=== PATIENT | female | born 1995 | race African-American/Black ===

== ENCOUNTER → 2023-07-21 10:43 | Outpatient (BNVA) | payer OTHER, SELFPAY | PROVIDERS: PCP Internal Medicine; Visit Provider Surgery ==

== ENCOUNTER 2023-09-02 07:48 | Outpatient (AMB) | payer OTHER, SELFPAY ==
--- OUTSIDE RECORDS SUMMARY | 2023-09-02 07:50 | XMS_ITS | Continuity of Care Document ---
Author Organization [facility] Address [address] [place] [address]- Care Team Providers Care Dolphin Trainer Name Role Phone Franchesca MAIN, Jeremy Fong Primary Care Physician [facility] Date[facility]s): 11/21/20 - 12/21/20 [facility] [address] [address]- Attending Physician: Za Brown Admitting Physician: Za Brown Referring Physician: AdmtrZa Allergies, Adverse Reactions, Alerts Substance Reaction Severity Status NKA Active Immunizations Given and Recorded Vaccine Date Status Refusal Reason Human Papillomavirus Vaccine 1 10/03/17 Given Human Papillomavirus Vaccine 2 10/20/07 Given Human Papillomavirus Vaccine 06/12/07 Given Human Papillomavirus Vaccine 04/03/07 Given tetanus/diphtheria/pertussis, acel(Tdap) 04/22/14 Given tetanus/diphtheria/pertussis, acel(Tdap) 11/11/10 Given influenza virus vaccine, inactivated 02/04/14 Give n influenza virus vaccine, inactivated 05/18/12 Give n Meningococcal Conjugate Vaccine 12/24/11 Given Meningococcal Conjugate Vaccine 04/03/07 Given Meningococcal Polysaccharide Vaccine 11/11/10 Give n Hepatitis A Pediatric Vaccine 11/11/10 Given Hepatitis A Pediatric Vaccine 09/08/09 Given Influenza Virus Vaccine (oldterm) 04/03/07 Given Tet/Diphth/Acel, Pertussis (oldterm) 10/21/05 Give n Measles/Mumps/Rubella Virus Vaccine 11/24/04 Given Measles/Mumps/Rubella Virus Vaccine 93 Given Poliovirus Vaccine, Inactivated 09/04/97 Given Poliovirus Vaccine, Inactivated 02/15/95 Given Poliovirus Vaccine, Inactivated 03/31/94 Given Poliovirus Vaccine, Inactivated 01/27/94 Given Poliovirus Vaccine, Inactivated 93 Given Diphth/Pertussis,Acel/Tetanus (oldterm) 09/04/97 G iven Diphth/Pertussis,Acel/Tetanus (oldterm) 02/15/95 G iven Diphth/Pertussis,Acel/Tetanus (oldterm) 03/31/94 G iven Diphth/Pertussis,Acel/Tetanus (oldterm) 01/27/94 G iven Diphth/Pertussis,Acel/Tetanus (oldterm) 93 G iven Haemophilus B Conj Vaccine (oldterm) 11/24/94 Give n Haemophilus B Conj Vaccine (oldterm) 03/31/94 Give n Haemophilus B Conj Vaccine (oldterm) 01/27/94 Give n Haemophilus B Conj Vaccine (oldterm) 93 Give n Hepatitis B Vaccine (old term) 03/31/94 Given Hepatitis B Vaccine (old term) 93 Given Hepatitis B Vaccine (old term) 93 Given 1Admin Note: gardasil 9 2Admin Note: GARDASIL #3 Problem List Condition Effective Dates Status Health Status Inform ant Abdominal mass(Confirmed) Active 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
--- OUTSIDE RECORDS SUMMARY | 2023-09-02 07:50 | XMS_ITS | Continuity of Care Document ---
Author Organization [facility] Address [address] [place] [address]- Care Team Providers Care Surgical Brace Maker Name Role Phone Franchesca MAIN, Jeremy Fong Primary Care Physician [place] [facility] [place] 05/[place]/21 [facility] [address] [address]- Attending Physician: Not on Staff, Attending MD Referring Physician: Pina Morrow CNM Allergies, Adverse Reactions, Alerts Substance Reaction Severity [...] Note: gardasil 9 2Admin Note: GARDASIL #3 Medications Diflucan 150 mg oral tablet 1 tablet = 150 mg, By Mouth, Once, # 1 tablet, 0 Refills, Soft Stop, 04/07/21 8:57:00 EST, [facility]/pharmacy #[id number], Partial fill upon patient request if the prescription is for a schedule II opioid drug.,180, cm, 04/02/21 19:27:00 EST, Height, 126.3, kg,... 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
--- OUTSIDE RECORDS SUMMARY | 2023-09-02 07:50 | XMS_ITS | Continuity of Care Document ---
Author Organization [facility] Address [address] [place] [address]- Care Team Providers Care Load Manager Name Role Phone Franchesca MAIN, Jeremy Fong Primary Care Physician [facility] Date(s): 04/03/21 - 05/03/21 [facility] [address] [address]- Allergies, Adverse Reactions, Alerts Substance Reaction Severity [...] 0 Refills, Soft Stop, 04/07/21 8:57:00 EST, [facility]/pharmacy #[id number], Partial fill upon patient request if [...]
--- OUTSIDE RECORDS SUMMARY | 2023-09-02 07:50 | XMS_ITS | Continuity of Care Document ---
Author Organization [facility] Address [address] [place] [address]- Care Team Providers Care Flowers Salesperson Name Role Phone Franchesca MAIN, Jeremy Fong Primary Care Physician Encounter [facility] Date(s): 06/29/22 - 06/29/[address] [address]- Discharge Disposition: A-D/C Home Attending Physician: Adonay Stanford MD Admitting Physician: Adonay Stanford MD Referring Physician: Not on Staff, Referring MD Allergies, Adverse Reactions, Alerts No Known Allergies Immunizations Given and Recorded Vaccine Date Status [...] gardasil 9 2Admin Note: GARDASIL #3 Medications Metformin By Mouth, 0 Refills, Maintenance, 06/29/22 20:33:00 EST, Partial fill upon patient request if the prescription is for a schedule II opioid drug. Start Date: 06/29/22 Status: Ordered Problem List Condition Confirmation Course Effective Dates Status Health St atus Informant Abdominal mass Confirmed Active Granulosa cell tumor of right ovary Confirmed Active HSV infection Confirmed Active Healthy adult on routine physical examination Confirmed Active Severe obesity Confirmed Active Vaginal discharge Confirmed Active Vital Signs Most recent to oldest [Reference Range]: 1 2 3 Height 180 cm (06/29/22 9:14 PM) 180 cm (06/29/22 8:32 PM) 180 cm (06/29/22 8:31 PM) Weight 131 kg (06/29/22 8:32 PM) 131 kg (06/29/22 8:31 PM) 131 kg (06/29/22 7:54 PM) Oxygen Saturation [94-100 %] 97 % (06/29/22 9:14 PM) 99 % (06/29/22 8:31 PM) 99 % (06/29/22 7:54 PM) Pulse Rate [55-90 bpm] 71 bpm (06/29/22 9:14 PM) 76 bpm (06/29/22 8:31 PM) 87 bpm (06/29/22 7:54 PM) Body Mass Index [18.5-24.99 kg/m2] 40.43 kg/m2 *>HHI* (06/29/22 8:31 PM) 40.43 kg/m2 *>HHI* (06/29/22 7:54 PM) Blood Pressure [90-138/55-84 mm Hg] 131/72mm Hg (06/29/22 9:14 PM) 131/79mm Hg (06/29/22 8:31 PM) Respiratory Rate [16-30 br/min] 18 br/min (06/29/22 9:14 PM) 18 br/min (06/29/22 8:31 PM) 16 br/min (06/29/22 7:54 PM) Temperature [96.8-100.4 DegF] 98.0 DegF (06/29/22 9:14 PM) 97.0 DegF (06/29/22 8:31 PM) Mode of Delivery (Oxygen) Room air (06/29/22 9:14 PM) Room air (06/29/22 8:31 PM) Room air (06/29/22 7:54 PM) Blood pressure sites Arm, right (06/29/22 9:14 PM) Arm, left (06/29/22 8:31 PM) Temperature Route Oral (06/29/22 9:14 PM) Temporal (06/29/22 8:31 PM) Dry Weight 131 kg (06/29/22 8:32 PM) 131 kg (06/29/22 8:31 PM) 131 kg (06/29/22 7:54 PM) Weight Obtained Via Patient/family state d (06/29/22 7:54 PM) Dry Weight Obtained Via Patient/family s tated (06/29/22 7:54 PM) Social History Social History Type Response Smoking Status Never smoker entered on: 05/11/16 Sex Note * Abdoulaye MAIN, Adonay Cummings: PERFORM Event Display: Patient Education Leaflets Authored Date: [id number] Zones GI Bleed ?? 400 GASTROINTESTINAL BLEED ZONES EVERY DAY Taking Care of Yourself with a Gastrointestinal Bleed Gastrointestinal Bleeding occurs when there is an irritation or break in the tissue of part of the gastrointestinal tract. EVERY DAY: ??? Take your medicine as prescribed. ??? Do not take any medicines with aspirin, Naproxen, Aleve, Motrin, Naprosyn, or ibuprofen. ??? Be sure to make a visit with your doctor/nurse within a few days. ??? Do your best to limit alcohol, spicy foods, or smoking. ??? Do not strain with having a bowel m ovement. ??? Slowly increase your activities as able . ??? Try to limit stress and avoid lifting heavy objects. Which Zone are you today? GREEN, YELLOW, or RED? GREEN ZONE ALL CLEAR - This zone is your goal Your symptoms are under control when: ??? You have no bloody stools or vomit. ??? You have no pain.??? You have no nausea or vomiting. YELLOW ZONE ?? STOP && CALL CAUTION - This zone is a warning.?? If you have any of the following: Call your Doctor : ??? Vomiting bright red, dark or black blood (could also look like coffee grounds. ??? Feel like you may have a BM but you only pass blood or blood clots. ??? You have sticky, tarry, or black stools that are not caused by medicines. ??? You have nausea, vomiting, or abdominal (belly) pain or abdominal swelling. ??? You start having heartburn or other signs of stomach problems. ??? You have questions or concerns about your illness or medications. ??? You have trouble breathing or your skin is itchy, swollen or has a rash (You may have an allergy to one of your meds). RED ZONE EMERGENCY: Speak with a Doctor/Nurse promptly if you have any of the following: (Do not drive yourself) ??? Dizziness or fainting mainly after changing positions. ??? Feel confused, have trouble breathing all of the sudden, or have chest pain. ??? Pain appears and worsens or spreads to neck, back, shoulder, or arm. ??? Are too weak to stand up. ? Patient Care team information Care Team Personnel Name: Jeremy Sorensen MD Position: Reference Physician Member Role: PCP Address: Address: [address] [place] [address]- Name: Adonay Stanford MD Position: [facility] Medicine MD Member Role: Admitting Physician Address: Address: [address] [place] [address]- Name: Jessica Ngo RN Position: [facility] RN W/OE and Tasks Member Role: Patient Care Provider Name: Elisabet Fisher Position: [facility] TA [facility] Member Role: Candy Puller Care Team Related Persons Name: MARIEL MURRAY Address: [place] [address] Name: ISSAC MURRAY Address: home [address] [place] [address]
--- OUTSIDE RECORDS SUMMARY | 2023-09-02 07:50 | XMS_ITS | Continuity of Care Document ---
Author Organization [facility] ter Address [address] [place] [address]- Care Team Providers Care Utility Worker Forge Name Role Phone Franchesca MAIN, Jeremy Fong Primary Care Physician [facility] Date[facility]s): 03/06/20 - 04/10/[address] [address] Attending Physician: Mariann Waite NP Admitting Physician: Mariann Waite NP Referring Physician: Mariann Waite NP Allergies, Adverse Reactions, Alerts Substance Reaction Severity [...] gardasil 9 2Admin Note: GARDASIL #3 Medications Valtrex 500 mg oral tablet 500 mg, 1, tablet, By Mouth, Daily, Refills 0, Maintenance, 11/21/18 9:55:43 EDT Start Date: 11/21/18 Status: Ordered Problem List Condition Effective Dates Status Health Status Inform ant Abdominal mass(Confirmed) Active 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
--- OUTSIDE RECORDS SUMMARY | 2023-09-02 07:50 | XMS_ITS | Continuity of Care Document ---
Author Organization [facility] Address [address] [place] [address]- Care Team Providers Care Round Up Ring Hand Name Role Phone Franchesca MAIN, Jeremy Fong Primary Care Physician [facility] Date(s): 06/26/20 - 07/26/20 [facility] [address] [address]- Allergies, Adverse Reactions, Alerts Substance Reaction Severity [...] gardasil 9 2Admin Note: GARDASIL #3 Medications Flagyl 500 mg oral tablet See Instructions, 1 tablet By Mouth Every 12 hours x 7 days. do not drink alcohol, # 14 tablet, 0 Refills, Maintenance, 06/26/20 12:58:00 EST, [facility][id number], Partial fill upon patient request ifthe prescription is for a schedule II opioid drug.... Start Date: 06/26/20 Status: Ordered fluconazole 150 mg oral tablet 1 tablet = 150 mg, By Mouth, Once, repeat dose if still having symptoms in 72 hours, # 2 tablet, 0 Refills, Soft Stop, 05/07/20 10:43:00 EST, Tablet, [id number], Partial fill upon patient request if the prescription is for a schedule II opioid... Start Date: 05/07/20 Status: Ordered Valtrex 500 mg oral tablet 500 mg, [...]
--- OUTSIDE RECORDS SUMMARY | 2023-09-02 07:51 | XMS_ITS | Continuity of Care Document ---
Author Organization [facility] Address [address] [place] [address]- Care Team Providers Care Food Trades Assistants Name Role Phone Franchesca MAIN, Jeremy Fong Primary Care Physician [place] [facility] [place]19 - 07/08/19 [facility] [address] [address] [facility] Attending Physician: Za Brown Admitting Physician: Za [...]
--- OUTSIDE RECORDS SUMMARY | 2023-09-02 07:51 | XMS_ITS | Continuity of Care Document ---
Author Organization [facility] Address [address] [place] [address]- Care Team Providers Care Insurance Claims Specialist Name Role Phone Franchesca MAIN, Jeremy Fong Primary Care Physician [phone] [facility]counter [facility] Date(s): 06/20/20 - 07/20/20 [facility] [address] [address]- Allergies, Adverse Reactions, Alerts Substance Reaction Severity [...] tablet, 0 Refills, Maintenance, 06/26/20 12:58:00 EST, [facility]/pharmacy #[id number], Partial fill upon patient request ifthe prescription is for a schedule II opioid drug.... Start Date: 06/26/20 Status: Ordered fluconazole 150 mg oral tablet 1 tablet = 150 mg, By Mouth, Once, repeat dose if still having symptoms in 72 hours, # 2 tablet, 0 Refills, Soft Stop, 05/07/20 10:43:00 EST, Tablet, [facility]/pharmacy #[id number], Partial fill upon patient request if [...]
--- OUTSIDE RECORDS SUMMARY | 2023-09-02 07:51 | XMS_ITS | Continuity of Care Document ---
Author Organization [facility] Address [address] [place] [address]- Care Team Providers Care Project Administrator Name Role Phone Franchesca MAIN, Jeremy Fong Primary Care Physician [facility] Date(s): 04/22/23 - 05/22/23 [facility] [address] [address] Allergies, Adverse Reactions, Alerts No Known Allergies [...] gardasil 9 2Admin Note: GARDASIL #3 Medications semaglutide Daily, 0 Refills, Maintenance, 09/28/22 12:02:00 EDT, Partial fill upon patient request if the prescription is for a schedule II opioid drug. Start Date: 09/28/22 Status: Ordered Problem List Condition Confirmation Course Effective Dates Status Health St atus Informant Abdominal mass Confirmed Active Granulosa cell tumor of right ovary Confirmed Active HSV infection Confirmed Active Healthy adult on routine physical examination Confirmed Active Obese class II Confirmed Active Vaginal discharge Confirmed Active Social History Social History Type Response Smoking Status Never smoker entered on: 05/11/16 Sex Patient Care team information Care Team Personnel Name: Franchesca MAIN, Jeremy Fong Position: Reference Physician Member Role: PCP Address: Address: [address] [place] [address]- Care Team Related Persons Name: MARIEL MURRAY Address: [place] [address] Name: ISSAC MURRAY Address: home [address] [place] [address]
--- OUTSIDE RECORDS SUMMARY | 2023-09-02 07:51 | XMS_ITS | Continuity of Care Document ---
Author Organization [facility] Address [address] [place] [address]- Care Team Providers Care Titrator Name Role Phone Franchesca MAIN, Jeremy Fong Primary Care Physician [phone] [facility]counter [facility] Date(s): 04/15/23 - 05/15/23 [facility] [address] [address] Allergies, Adverse Reactions, Alerts No Known [...] Reference Physician Member Role: PCP Address: Address: [address] [place] [address]- Care Team Related Persons Name: MARIEL MURRAY Address: [place] [address] Name: ISSAC MURRAY Address: [address] [place] [address]
--- OUTSIDE RECORDS SUMMARY | 2023-09-02 07:51 | XMS_ITS | Continuity of Care Document ---
Author Organization [facility] ter Address [address] [place] [address]- Care Team Providers Care On Call Pharmacy Technician Name Role Phone Franchesca MAIN, Jeremy Fong Primary Care Physician Encounter [facility] [place] Date(s): 04/21/20 - 04/21/[address] [address]- Encounter Diagnosis Bacterial vaginosis(Discharge Diagnosis) - 04/21/20 Discharge Disposition: A-D/C Home Attending Physician: Clem Perdue MD Admitting Physician: Clem Perdue MD Referring Physician: Clem Perdue MD Allergies, Adverse Reactions, Alerts Substance Reaction Severity [...] #3 Medications Flagyl 500 mg oral tablet 1 tablet = 500 mg, By Mouth, Every 12 hours, for 7 days, Acute, # 14 tablet, 0 Refills, Acute 04/28/20 18:48:00 EST, 04/21/20 18:48:00 EST, [facility] #[id number], Partial fill upon patient request if the prescription is for a schedule II opioid... 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 adult on routine phy sical examination(Confirmed) Active Diagnosis Diagnosis Type Effective Dates Health Status Cl inical Service Informant Bacterial vaginosis Discharge Diagnosis 04/21/20 Vital Signs Most recent to oldest [Reference Range]: 1 Height 183.2 cm (04/21/20 5:28 PM) Weight 124.0 kg (04/21/20 5:18 PM) Oxygen Saturation [94-100 %] 100 % (04/21/20 5:28 PM) Pulse Rate [55-90 bpm] 91 bpm *H* (04/21/20 5:28 PM) Blood Pressure [90-138/55-84 mm Hg] 130/ 77mm Hg (04/21/20 5:28 PM) Respiratory Rate [16-30 br/min] 18 br/mi n (04/21/20 5:28 PM) Temperature [96.8-100.4 DegF] 98.4 DegF (04/21/20 5:28 PM) Mode of Delivery (Oxygen) Room air (04/21/20 5:28 PM) Blood pressure sites Arm, left (04/21/20 5:28 PM) Temperature Route Oral (04/21/20 5:28 PM) Dry Weight 124.0 kg (04/21/20 5:18 PM) Weight Obtained Via Standing scale (04/21/20 5:18 PM) Dry Weight Obtained Via Standing scale (04/21/20 5:18 PM) Social History Social History Type Response Smoking Status Never smoker entered on: 05/11/16 Sex
--- OUTSIDE RECORDS SUMMARY | 2023-09-02 07:51 | XMS_ITS | Continuity of Care Document ---
Author Organization [facility] Address [address] [place] [address]- Care Team Providers Care Electrical Tests Supervisor Name Role Phone Franchesca MAIN, Jeremy Fong Primary Care Physician [facility] Date[facility]s): 07/30/21 - 08/29/21 [facility] DIRECTOR OF ATHLETICS Oncology [address] [place] [address] Allergies, Adverse Reactions, Alerts No Known Allergies [...] 0 Refills, Soft Stop, 04/07/21 8:57:00 EST, [facility]/pharmacy #[id number], Partial fill upon patient request if [...]
--- OUTSIDE RECORDS SUMMARY | 2023-09-02 07:51 | XMS_ITS | Continuity of Care Document ---
Author Organization [facility] Address [address] [place] [address]- Care Team Providers Care Oilfield Plant And Field Operator Name Role Phone Franchesca MAIN, Jeremy Fong Primary Care Physician [facility] Date(s): 01/28/22 - 02/27/22 [facility] [address] [place], [place] [address] Attending Physician: Za Brown Admitting Physician: Za Brown Referring Physician: AdmtrZa Allergies, Adverse Reactions, Alerts No Known Allergies [...] 2Admin Note: GARDASIL #3 Problem List Condition Confirmation Course Effective Dates Status Health St atus Informant Abdominal mass Confirmed Active Granulosa cell tumor of right ovary Confirmed Active HSV infection Confirmed Active Healthy adult on routine physical examination Confirmed Active Obese class II Confirmed Active Vaginal discharge Confirmed Active Social History Social History Type Response Smoking Status Never smoker entered on: 05/11/16 Sex Patient Care team information Personnel Name: Franchesca MAIN , Jeremy Fong Address: Address: [address] [place] [address]
--- OUTSIDE RECORDS SUMMARY | 2023-09-02 07:51 | XMS_ITS | Continuity of Care Document ---
Author Organization [facility] Address [address] [place] [address]- Care Team Providers Care Family Practice Physician Name Role Phone Franchesca MAIN, Jeremy Fong Primary Care Physician [phone] Encounter [facility] Date(s): 07/18/23 - 08/17/23 [facility] [address] [address] Allergies, Adverse Reactions, Alerts No Known [...] ovary Confirmed Active HSV infection Confirmed Active Obese class II Confirmed Active Social History Social History Type Response Smoking Status Never smoker entered on: 05/11/16 Sex Patient Care team information Care Team Personnel Name: Franchesca MAIN, Jeremy Fong Position: Reference Physician Member Role: PCP Address: Address: [address] [place] [address]- Care Team Related Persons Name: MARIEL MURRAY Address: [place] [address] Name: ISSAC MURRAY Address: [address] [place] [address]
--- OUTSIDE RECORDS SUMMARY | 2023-09-02 07:51 | XMS_ITS | Continuity of Care Document ---
Author Organization [facility] Address [address] [place] [address]- Care Team Providers Care Activity Assistant Name Role Phone Franchesca MAIN, Jeremy Fong Primary Care Physician [facility] Date(s): 07/30/20 - 08/29/20 [facility] [address] [address]- Allergies, Adverse Reactions, Alerts Substance Reaction Severity [...] tablet, 0 Refills, Maintenance, 06/26/20 12:58:00 EST, [facility]/pharmacy #[id number], Partial fill upon patient request ifthe prescription is for a schedule II opioid drug.... Start Date: 06/26/20 Status: Ordered fluconazole 150 mg oral tablet 1 tablet = 150 mg, By Mouth, Once, repeat dose if still having symptoms in 72 hours, # 2 tablet, 0 Refills, Soft Stop, 05/07/20 10:43:00 EST, Tablet, [facility]/pharmacy #[id number], Partial fill upon patient request if the prescription is for a schedule II opioid... Start Date: 05/07/20 Status: Ordered ibuprofen 400 mg oral tablet 400 mg, 1, tablet, By Mouth, Every 6 hours, # 30 tablet, Refills 0, Tot. Refills 0, Maintenance, 07/30/20 16:03:00 EDT, Route to Pharmacy Electronically, [facility]/pharmacy #[id number], Partial fill upon patientrequest if the prescription is for a schedule II op... Start Date: 07/30/20 Status: Ordered lidocaine 4% topical film 1 patch, Topically, 3 times a day, # 15 each, 0 Refills, Maintenance, 07/30/20 16:03:00 EDT, [id number], Partial fill upon patient request if the prescription is for a schedule II opioid drug., 1 patch Topically 3 times a day, 183, cm, 2... Start Date: 07/30/20 Status: Ordered Tylenol 325 mg oral capsule 2 capsule = 650 mg, By Mouth, Every 6 hours, PRN Pain , Moderate, # 20 capsule, 0 Refills, Maintenance, 07/30/20 16:03:00 EDT, Capsule, [id number], Partial fill upon patient request if the prescription is for a schedule II opioid drug., 183, c... Start Date: 07/30/20 Status: Ordered Valtrex 500 mg oral tablet [...]
--- OUTSIDE RECORDS SUMMARY | 2023-09-02 07:51 | XMS_ITS | Continuity of Care Document ---
Author Organization [facility] DIAL PAINTER Oncolog y Address [address] [place] [address]- Care Team Providers Care Allergy And Immunology Specialist Name Role Phone Franchesca MAIN, Jeremy Fong Primary Care Physician [phone] Encounter [facility] Date(s): 05/07/20 - 06/06/20 [facility] DIAL PAINTER Oncology [address] [place] [id number] Allergies, Adverse Reactions, Alerts Substance Reaction Severity [...] gardasil 9 2Admin Note: GARDASIL #3 Medications fluconazole 150 mg oral tablet 1 tablet [...]
--- OUTSIDE RECORDS SUMMARY | 2023-09-02 07:51 | XMS_ITS | Continuity of Care Document ---
Author Organization [facility] Address [address] [place] [address]- Care Team Providers Care Wire Tester Name Role Phone Franchesca MAIN, Jeremy Fong Primary Care Physician Encounter [facility] Date(s): 05/04/19 - 05/14/19 [facility] [address] [place] [address]- [facility] Attending Physician: Za Brown Admitting Physician: Za Brown Referring Physician: Za Brown Allergies, Adverse Reactions, Alerts Substance Reaction Severity [...]
--- OUTSIDE RECORDS SUMMARY | 2023-09-02 07:51 | XMS_ITS | Continuity of Care Document ---
Author Organization [facility] Address [address] [place] [address]- Care Team Providers Care Cement Paver Name Role Phone Franchesca MAIN, Jeremy Fong Primary Care Physician Encounter [facility] Date(s): 07/13/23 - 08/12/[address] [address]- Attending Physician: Za Brown Admitting Physician: Za Brown Referring Physician: AdmZa timmons Allergies, Adverse Reactions, Alerts No Known Allergies [...] Reference Physician Member Role: PCP Address: Address: [address] [place] [address]- Care Team Related Persons Name: MARIEL MURRAY Address: [place] [address] Name: ISSAC MURRAY Address: home [address] [place] [address]
--- OUTSIDE RECORDS SUMMARY | 2023-09-02 07:51 | XMS_ITS | Continuity of Care Document ---
Author Organization [facility] Address [address] [place] [address]- Care Team Providers Care Court Operations Clerk Name Role Phone Franchesca MAIN, Jeremy Fong Primary Care Physician Encounter [facility] Date(s): 07/29/20 - 08/28/20 [facility] [address] [address]- Attending Physician: Za Brown Admitting Physician: Za [...] tablet, 0 Refills, Maintenance, 06/26/20 12:58:00 EST, [facility]/pharmacy #[id number], Partial fill upon patient request ifthe prescription is for a schedule II opioid drug.... Start Date: 06/26/20 Status: Ordered fluconazole 150 mg oral tablet 1 tablet = 150 mg, By Mouth, Once, repeat dose if still having symptoms in 72 hours, # 2 tablet, 0 Refills, Soft Stop, 05/07/20 10:43:00 EST, Tablet, [facility]/pharmacy #[id number], Partial fill upon patient request if the prescription is for a schedule II opioid... Start Date: 05/07/20 Status: Ordered ibuprofen 400 mg oral tablet 400 mg, 1, tablet, By Mouth, Every 6 hours, # 30 tablet, Refills 0, Tot. Refills 0, Maintenance, 07/30/20 16:03:00 EDT, Route to Pharmacy Electronically, [facility]/pharmacy #[id number], Partial fill upon patientrequest if the [...] Topically 3 times a day, 183, cm, ... Start Date: 07/30/20 Status: Ordered Tylenol 325 [...]
--- OUTSIDE RECORDS SUMMARY | 2023-09-02 07:51 | XMS_ITS | Continuity of Care Document ---
Author Organization [facility] GREASE BUFFER Oncolog y Address [address] [place] [address]- Care Team Providers Care Fire Information Officer Name Role Phone Jeremy Sorensen MD Primary Care Physician [facility]counter [facility] Date(s): 07/08/21 - 08/16/21 [facility] Oncology [address] [place] [email or web address] Attending Physician: Dylan Murray MD Admitting Physician: Dylan Murray MD Referring Physician: Jeremy Sorensen MD Allergies, Adverse Reactions, Alerts No Known [...] 0 Refills, Soft Stop, 04/07/21 8:57:00 EST, [facility]/pharmacy #[id number], Partial fill upon patient request if [...]
--- OUTSIDE RECORDS SUMMARY | 2023-09-02 07:51 | XMS_ITS | Continuity of Care Document ---
Author Organization [facility] Address [address] [place] [address]- Care Team Providers Care Preparer Samples And Repairs Name Role Phone Franchesca MAIN, Jeremy Fong Primary Care Physician [phone] Encounter [facility] Date(s): 04/06/21 - 05/06/21 [facility] [address] [address]- Attending Physician: Za Brown Admitting Physician: Za [...] 0 Refills, Soft Stop, 04/07/21 8:57:00 EST, [facility]/pharmacy #[id number], Partial fill upon patient request [...]
--- OUTSIDE RECORDS SUMMARY | 2023-09-02 07:51 | XMS_ITS | Continuity of Care Document ---
Author Organization [facility] Address [address] [place] [address]- Care Team Providers Care Pharmacy Operations Coordinator Name Role Phone Franchesca MAIN, Jeremy Fong Primary Care Physician [facility]counter [facility] Date(s): 06/25/19 - 11/17/19 [facility] [address] [address]- [facility] Attending Physician: Not on Staff, Attending MD Allergies, Adverse Reactions, Alerts Substance Reaction [...]
--- OUTSIDE RECORDS SUMMARY | 2023-09-02 07:51 | XMS_ITS | Continuity of Care Document ---
Author Organization [facility] Address [address] [place] [address]- Care Team Providers Care Roof Promenade Tile Setter Name Role Phone Franchesca MAIN, Jeremy Fong Primary Care Physician Encounter [facility] Date(s): 11/27/19 - 12/27/19 [facility] [address] [address]- [facility] Attending Physician: Za Brown Admitting Physician: Za [...]
--- OUTSIDE RECORDS SUMMARY | 2023-09-02 07:52 | XMS_ITS | Continuity of Care Document ---
Author Organization [facility] Oncolog [facility] Address [address] [place] [address]- Care Team Providers Care Licensed Esthetician Name Role Phone Jeremy Sorensen MD Primary Care Physician [phone] Encounter [facility] Date(s): 02/07/21 - 06/07/21 [facility] [address] [place] [address]- Attending Physician: Stacie Brown MD Admitting Physician: Stacie Brown MD Referring Physician: Jeremy Sorensen MD Allergies, [...] 0 Refills, Soft Stop, 04/07/21 8:57:00 EST, [facility]/pharmacy #[id number], Partial fill upon patient request [...]
--- OUTSIDE RECORDS SUMMARY | 2023-09-02 07:52 | XMS_ITS | Continuity of Care Document ---
Author Organization [facility] ter Address [address] [place] [address]- Care Team Providers Care Investor Relations Associate Name Role Phone Franchesca MAIN, Jeremy Fong Primary Care Physician Encounter [facility] Date(s): 04/21/21 - 06/18/[address] [address] Attending Physician: Annette Bosch CNM Admitting Physician: Annette Bosch CNM Referring Physician: Annette Bosch CNM Allergies, Adverse Reactions, Alerts No Known Allergies [...] 0 Refills, Soft Stop, 04/07/21 8:57:00 EST, [facility]/pharmacy #[id number], Partial fill upon [...]
--- OUTSIDE RECORDS SUMMARY | 2023-09-02 07:52 | XMS_ITS | Continuity of Care Document ---
Author Organization [facility] FURNACE COOLER Oncolog y Address [address] [place] [address]- Care Team Providers Care Inspector Final Assembly Electrical Name Role Phone Franchesca MAIN, Jeremy Fong Primary Care Physician [facility]counter [facility] Date(s): 06/25/20 - 07/25/20 [facility] FURNACE COOLER Oncology [address] [place] [address] Allergies, Adverse Reactions, Alerts Substance Reaction Severity [...]
--- OUTSIDE RECORDS SUMMARY | 2023-09-02 07:52 | XMS_ITS | Continuity of Care Document ---
Author Organization [facility] DIRECTOR OF ACADEMIC Oncolog y Address [address] [place] [address]- Care Team Providers Care Stoper Name Role Phone Franchesca MAIN, Jeremy Fong Primary Care Physician Encounter [facility] Date(s): 05/21/21 - 06/20/21 [facility] DIRECTOR OF ACADEMIC Oncology [address] [place] [address] Attending Physician: Za Brown [...] 0 Refills, Soft Stop, 04/07/21 8:57:00 EST, [facility]/pharmacy #[id number], Partial fill upon [...]
--- OUTSIDE RECORDS SUMMARY | 2023-09-02 07:52 | XMS_ITS | Continuity of Care Document ---
Author Organization [facility] Address [address] [place] [address]- Care Team Providers Care Orthodontist Vice President Name Role Phone Franchesca MAIN, Jeremy Fong Primary Care Physician [phone] Encounter [facility] Date(s): 11/28/20 - 11/28/[address] [address]- Discharge Disposition: A-D/C Home Attending Physician: Catracho Zepeda MD Admitting Physician: Catracho Zepeda MD Referring Physician: Not on Staff, Referring MD Allergies, Adverse Reactions, Alerts Substance Reaction [...] gardasil 9 2Admin Note: GARDASIL #3 Medications No Known Medications Problem List Condition Effective Dates Status Health Status Inform ant Abdominal mass(Confirmed) Active 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 adult on routine phy sical examination(Confirmed) Active Vaginal discharge(Confirmed) Active Vital Signs Most recent to oldest [Reference Range]: 1 Height 180 cm (11/28/20 11:53 AM) Weight 126.3 kg (11/28/20 11:53 AM) Oxygen Saturation [94-100 %] 96 % (11/28/20 11:53 AM) Pulse Rate [55-90 bpm] 84 bpm (11/28/20 11:53 AM) Blood Pressure [90-138/55-84 mm Hg] 141/ 84mm Hg *H* (11/28/20 11:53 AM) Respiratory Rate [16-30 br/min] 16 br/mi n (11/28/20 11:53 AM) Temperature [96.8-100.4 DegF] 98.3 DegF (11/28/20 11:53 AM) Mode of Delivery (Oxygen) Room air (11/28/20 11:53 AM) Blood pressure sites Arm, left (11/28/20 11:53 AM) Temperature Route Oral (11/28/20 11:53 AM) Dry Weight 126.3 kg (11/28/20 11:53 AM) Weight Obtained Via Standing scale (11/28/20 11:53 AM) Dry Weight Obtained Via Standing scale (11/28/20 11:53 AM) Social History Social History Type Response Smoking Status Never smoker entered on: 05/11/16 Sex
--- OUTSIDE RECORDS SUMMARY | 2023-09-02 07:52 | XMS_ITS | Continuity of Care Document ---
Author Organization [facility] Address [address] [place] [address]- Care Team Providers Care Molding Press Operator Name Role Phone Jeremy Sorensen MD Primary Care Physician [facility]counter [facility] Date(s): 04/21/23 - 05/21/23 [facility] [address] [address]- Attending Physician: Za Brown Admitting Physician: Za [...] Reference Physician Member Role: PCP Address: Address: [address] [place] [address]- Care Team Related Persons Name: MARIEL MURRAY Address: [place] [address] Name: ISSAC MURRAY Address: home [address] [place] [address]
--- OUTSIDE RECORDS SUMMARY | 2023-09-02 07:52 | XMS_ITS | Continuity of Care Document ---
Author Organization [facility] ter Address [address] [place] [address]- Care Team Providers Care Grain Processor Name Role Phone Franchesca MAIN, Jeremy Fong Primary Care Physician Encounter [facility] Date(s): 07/30/20 - 07/30/[address] [address]- Discharge Disposition: A-D/C Home Attending Physician: Elizabeth Crump DO Admitting Physician: Elizabeth Crump DO Referring Physician: Not on Staff, Referring MD [...] gardasil 9 2Admin Note: GARDASIL #3 Medications clotrimazole 1% vaginal cream with applicator 1 application, Vaginally, Daily at bedtime, for 7 days, # 45 Gm, 0 Refills, Acute 08/06/20 14:53:00EDT, 07/30/20 14:53:00 EDT, Cream, [facility]/pharmacy #[id number], Partial fill upon patient request if the prescription is for a schedule II opioid drug., 1 appli... Start Date: 07/30/20 Stop Date: 08/06/20 Status: Ordered Flagyl 500 mg oral tablet 1 tablet = 500 mg, By Mouth, Every 12 hours, for 7 days, # 14 tablet, 0 Refills, Acute 08/06/20 14:53:00 EDT, 07/30/20 14:53:00 EDT, [facility]/pharmacy #[id number], Partial fill upon patient request if the prescription is for a schedule II opioid drug., 183, cm,... Start Date: 07/30/20 Stop Date: 08/06/20 Status: Ordered Flagyl 500 mg oral tablet See Instructions, 1 tablet By Mouth Every 12 hours x 7 days. do not drink alcohol, # 14 tablet, 0 Refills, Maintenance, 06/26/20 12:58:00 EST, [facility]/pharmacy #[id number], Partial fill upon patient request ifthe prescription is for a schedule II opioid drug.... Start Date: 06/26/20 Status: Ordered fluconazole 150 mg oral tablet 1 tablet = 150 mg, By Mouth, Once, repeat dose if still having symptoms in 72 hours, # 2 tablet, 0 Refills, Soft Stop, 05/07/20 10:43:00 EST, Tablet, [facility]/pharmacy #[id number], Partial fill upon patient request if the prescription is for a schedule II opioid... Start Date: 05/07/20 Status: Ordered ibuprofen 400 mg oral tablet 400 mg, 1, tablet, By Mouth, Every 6 hours, # 30 tablet, Refills 0, Tot. Refills 0, Maintenance, 07/30/20 16:03:00 EDT, Route to Pharmacy Electronically, [facility]/pharmacy #[id number], Partial fill upon patientrequest if the prescription is for a schedule II op... Start Date: 07/30/20 Status: Ordered lidocaine 4% topical film 1 patch, Topically, 3 times a day, # 15 each, 0 Refills, Maintenance, 07/30/20 16:03:00 EDT, [facility]/pharmacy #[id number], Partial fill upon patient request if the prescription is for a schedule II opioid drug., 1 patch Topically 3 times a day, 183, cm, ... Start Date: 07/30/20 Status: Ordered Tylenol 325 mg oral capsule 2 capsule = 650 mg, By Mouth, Every 6 hours, PRN Pain , Moderate, # 20 capsule, 0 Refills, Maintenance, 07/30/20 16:03:00 EDT, Capsule, [facility]/pharmacy #[id number], Partial fill upon patient [...] recent to oldest [Reference Range]: 1 2 Height 183 cm (07/30/20:32 AM) 183 cm (07/30/20 9:37 AM) Weight 125.6 kg (07/30/20 11:32 AM) 125.6 kg (07/30/20 9:37 AM) Oxygen Saturation [94-100 %] 100 % (07/30/20:32 AM) 100 % (07/30/20 9:37 AM) Pulse Rate [55-90 bpm] 65 bpm (07/30/20:32 AM) 65 bpm (07/30/20 9:37 AM) Body Mass Index [18.5-24.99] 37.5 *>HHI* (07/30/20:32 AM) 37.5 *>HHI* (07/30/20 9:37 AM) Blood Pressure [90-138/55-84 mm Hg] 140/ 83mm Hg *H* (07/30/20:32 AM) 142/70mm Hg *H* (07/30/20 9:37 AM) Respiratory Rate [16-30 br/min] 15 br/mi n *L* (07/30/20:32 AM) 16 br/min (07/30/20 9:37 AM) Temperature [96.8-100.4 DegF] 98.4 DegF (07/30/20:32 AM) 98.0 DegF (07/30/20 9:37 AM) Mode of Delivery (Oxygen) Room air (07/30/20:32 AM) Room air (07/30/20 9:37 AM) Blood pressure sites Arm, left (07/30/20:32 AM) Arm, right (07/30/20 9:37 AM) Temperature Route Oral (07/30/20:32 AM) Oral (07/30/20 9:37 AM) Dry Weight 125.6 kg (07/30/20 11:32 AM) 125.6 kg (07/30/20 9:37 AM) Weight Obtained Via Standing scale (07/30/20 9:37 AM) Dry Weight Obtained Via Standing scale (07/30/20 9:37 AM) Social History Social History Type Response Smoking Status Never smoker entered on: 05/11/16 Sex
--- OUTSIDE RECORDS SUMMARY | 2023-09-02 07:52 | XMS_ITS | Continuity of Care Document ---
Author Organization [facility] Address [address] [place] [address]- Care Team Providers Care Editor Continuity And Script Name Role Phone Franchesca MAIN, Jeremy Fong Primary Care Physician [facility] Date(s): 04/15/23 - 05/28/23 [facility] [address] [address] Attending Physician: Not on Staff, Attending MD Allergies, Adverse Reactions, Alerts No Known [...] Reference Physician Member Role: PCP Address: Address: [address] [place] [address]- Care Team Related Persons Name: MARIEL MURRAY Address: [place] [address] Name: ISSAC MURRAY Address: home [address] [place] [address]
--- OUTSIDE RECORDS SUMMARY | 2023-09-02 07:53 | XMS_ITS | Continuity of Care Document ---
Author Organization [facility] Address [address] [place] [address]- Care Team Providers Care Business Banking Sales Assistant Name Role Phone Franchesca MAIN, Jeremy Fong Primary Care Physician [facility] Date(s): 03/30/21 - 04/29/21 [facility] [address] [address]- Allergies, Adverse Reactions, Alerts Substance Reaction Severity [...] 0 Refills, Soft Stop, 04/07/21 8:57:00 EST, [facility]/pharmacy #[id number], Partial fill upon patient request [...]
--- OUTSIDE RECORDS SUMMARY | 2023-09-02 07:53 | XMS_ITS | Continuity of Care Document ---
Author Organization [facility] THERAPIST ASST Oncolog y Address [address] [place] [address]- Care Team Providers Care Funeral Director And Embalmer Name Role Phone Jeremy Sorensen MD Primary Care Physician [phone] Encounter [facility] Date(s): 05/08/21 - 06/20/21 [facility] THERAPIST ASST Oncology [address] [place] [address]- Attending Physician: Elizabeth Lei NP Admitting Physician: Do NARAYAN, Elizabeth Mccarthy Referring Physician: Jeremy Sorensen MD Allergies, Adverse [...] 0 Refills, Soft Stop, 04/07/21 8:57:00 EST, [facility]/pharmacy #[id number], Partial fill upon patient request [...]
--- OUTSIDE RECORDS SUMMARY | 2023-09-02 07:53 | XMS_ITS | Continuity of Care Document ---
Author Organization [facility] Address [address] [place] [address]- Care Team Providers Care Prototype Engineer Manager Name Role Phone Franchesca MAIN, Jeremy Fong Primary Care Physician [facility]counter [facility] Date(s): 04/21/23 - 05/21/23 [facility] [address] [address] Allergies, Adverse Reactions, Alerts [...] Reference Physician Member Role: PCP Address: Address: [address] [place] [address]- Care Team Related Persons Name: MARIEL MURRAY Address: [place] [address] Name: ISSAC MURRAY Address: home [address] [place] [address]
--- OUTSIDE RECORDS SUMMARY | 2023-09-02 07:53 | XMS_ITS | Continuity of Care Document ---
Author Organization [facility] Address [address] [place] [address]- Care Team Providers Care Traffic Coordinator Name Role Phone Franchesca MAIN, Jeremy Fong Primary Care Physician [phone] Encounter [facility] Date(s): 09/28/22 - 09/28/[address] [address]- Encounter Diagnosis Constipation(Final) - 09/28/22 Discharge Disposition: A-D/C Home Attending Physician: Chris Bird MD Admitting Physician: Chris Bird MD Referring Physician: Not on Staff, Referring [...] gardasil 9 2Admin Note: GARDASIL #3 Medications Golytely - oral powder for reconstitution 240 mL, By Mouth, Every 10 minutes, use until desired effect, # 1 each, 0 Refills, Maintenance, 09/28/22 18:06:00 EDT, REC Powder, Partial fill upon patient request if the prescription is for a schedule II opioid drug. Start Date: 09/28/22 Status: Ordered Metformin By Mouth, 0 Refills, Maintenance, 06/29/22 20:33:00 EST, Partial fill upon patient request if the prescription is for a schedule II opioid drug. Start Date: 06/29/22 Status: Ordered semaglutide Daily, 0 Refills, Maintenance, 09/28/22 12:02:00 [...] obesity Confirmed Active Vaginal discharge Confirmed Active Results Radiology Reports * Exam Date Time Procedure Performing Provider Status 09/28/22 5:[address] Abd/Pelvis W/ IV + Oral Contrast Martha Connors; Auth (Verified) Notes: (CT Abd/Pelvis W/ IV + Oral Contrast) Reason For Exam: report of possible obtruction on outside xray;Other: RESULT: CT Abd/Pelvis W/ IV + Oral Contrast CT Abd/Pelvis W/ IV + Oral Contrast HX OF PRESENT ILLNESS: pt has stomach pain and constipation that she has been dealing with for a long time. Her PCP did a x-ray Tuesday and she was told she has a partial bowel obstruction. +Nausea and bloating. Has a hard BM yesterday.; Reason: report of possible obstruction on outside xray; Clinical Question(s): Obstruction; TECHNIQUE: Spiral CT through the abdomen and pelvis with IV contrast formatted in 3 planes. 100 cc of Omnipaque 300 was administered intravenously. This study was performed with oral contrast. Weight-based protocol using automatic tube modulation was used to optimize exposure parameters. CTDIvol Body: 20.25 mGy, DLP Body: 1217 mGy*cm. COMPARISON: CT abdomen and pelvis from 05/01/2016. FINDINGS: Bench Repair Technician View Findings, Lines and Tubes: None. Visualized Chest: Lung bases are clear. No pleural effusion. The heart is normal in size. No pericardial effusion. Diaphragm: Normal. Liver: Normal. Gallbladder: Normal. Bile ducts: No biliary ductal dilation. Spleen: Normal. Pancreas: Normal. Adrenal glands: Normal. Kidneys and ureters: No hydronephrosis, stones, or suspicious masses. Bladder: Normal. Reproductive organs: Normal anteverted uterus with an intrauterine device in appropriate position Stomach, small bowel, and large bowel: Normal caliber stomach and bowel loops. No evidence of acuteobstruction. There is contrast visualized up to the level of the mid to distal ileum. Moderate colonic stool retention. Mild sigmoid diverticulosis without any evidence of acute diverticulitis. Appendix: Normal. Peritoneum and retroperitoneum: No ascites or pneumoperitoneum. No omental or mesenteric lesions. Lymph nodes: No enlarged lymph nodes. Blood vessels: Normal. No aneurysm. No evidence of venous thrombosis. Abdominal and pelvic wall: Unremarkable. Bones: No acute abnormality. IMPRESSION: 1. Moderate colonic stool retention, compatible with constipation in the appropriate setting. No evidence of acute bowel obstruction. 2. Mild sigmoid diverticulosis without any evidence of acute diverticulitis. I have personally reviewed the images and I agree with this report. WSN: [id number] Ordering Physician: Nathaly Wolf Dictated By: Theodore Renner MD Dictated Date/Time: 09/28/22 5:48 pm Reviewed By: Dae Lou MD Signed By: Dae Lou MD Signed Date/Time: 09/28/22 5:53 pm Transcribed By: TUYET Transcribed Date/Time: 09/28/22 5:24 pm Vital Signs Most recent to oldest [Reference Range]: 1 2 Height 180 cm (09/28/22 11:58 AM) Weight 125 kg (09/28/22 11:58 AM) Oxygen Saturation [94-100 %] 100 % (09/28/22 11:58 AM) 100 % (09/28/22 11:57 AM) Pulse Rate [55-90 bpm] 65 bpm (09/28/22 11:58 AM) 83 bpm (09/28/22 11:57 AM) Blood Pressure [90-138/55-84 mm Hg] 132/ 84mm Hg (09/28/22 11:58 AM) Respiratory Rate [16-30 br/min] 20 br/mi n (09/28/22 11:58 AM) 16 br/min (09/28/22 11:57 AM) Temperature [96.8-100.4 DegF] 97.6 DegF (09/28/22 11:58 AM) Mode of Delivery (Oxygen) Room air (09/28/22 11:58 AM) Blood pressure sites Arm, left (09/28/22 11:58 AM) Temperature Route Temporal (09/28/22 11:58 AM) Dry Weight 125 kg (09/28/22 11:58 AM) Social History Social History Type Response Smoking Status Never smoker entered on: 05/11/16 Sex Note * Nathaly Lawrence: PERFORM Event Display: Patient Education Leaflets Authored Date: [id number] Constipation (Adult) ?? [id number] Constipation (Adult) Constipation means that you have bowel movements that are less frequent than usual. Stools often become very hard and difficult to pass. Constipation is very common. At some point in life, it affects almost everyone. Since everyone's bowel habits are different, what is constipation to one person may not be to another. Your healthcare provider may do tests to diagnose constipation. It depends on what??they??find when evaluating you. Symptoms of constipation include: ??? Abdominal pain ??? Bloating ??? Vomiting ??? Painful bowel movements ??? Itching, swelling, bleeding, or pain around the anus Causes Constipation can have many causes. These include: ??? Diet low in fiber ??? Too much dairy ??? Not drinking enough liquids ??? Lack of exercise or physical activity (especially true for older adults)??? Changes in lifestyle or daily routine, including , aging, work, and travel ??? Frequent use or misuse of laxatives ??? Ignoring the urge to have a bowel movement or delaying it until later ??? Medicines, such as certain prescription pain medicines, iron supplements, antacids, certain antidepressants, and calcium supplements ??? Diseases like irritable bowel syndrome, bowel obstructions, stroke, diabetes, thyroid disease, Parkinson disease, hemorrhoids, and colon cancer ?? Complications Possible complications of constipation can include: ??? Hemorrhoids ??? Rectal bleeding from hemorrhoids or anal fissures??(skin tears) ??? Hernias ??? Chronic constipation ??? Fecal impaction, a severe form of constipation in which a large amount of hard stool is in your rectum that you can't pass??? Bowel obstruction or perforation ?? Home care All treatment should be done after talking with your healthcare provider. This is especially true if you have another medical problem, are taking prescription medicines, or are an older adult. Treatment most often involves lifestyle changes. You may also need medicines. Your healthcare provider will tell you which will work best for you. Follow the advice below to help avoid this problem in the future. ?? Lifestyle changes These lifestyle changes can help prevent constipation: ??? Diet. Eat a high- fiber diet, with fresh fruit and vegetables, and reduce dairy intake, meats, and processed foods ??? Fluids. It's importantto get enough fluids each day. Drink plenty of water when you eat more fiber. If you are on diet that limits the amount of fluid you can have, talk about this with your healthcare provider. ??? Regular exercise. Check with your healthcare provider first. ?? Medicines Take any medicines as directed. Some laxatives are safe to use only every now and then. Others can be taken on a regular basis. While laxatives don't cause bowel dependence, they are treating the symptoms. So your constipation may return if you don't make other changes. Talk with your healthcare provider or pharmacist if you have questions. Prescription pain medicines can cause constipation. If you are taking this kind of medicine, ask your healthcare provider if you should also take a stool softener. Medicines you may take to treat constipation include: ??? Fiber supplements ??? Stool softeners ???Laxatives ??? Enemas ??? Rectal suppositories ?? Follow-up care Follow up with your healthcare provider if symptoms don't get better in the next few days. You may need to have more tests or see a specialist. ?? Call 911 Call 911 if any of these occur: ??? Trouble breathing ??? Stiff, rigid abdomen that is severely painful to touch ??? Large amount of blood in the stool ??? Confusion ??? Fainting or loss of consciousness ??? Rapid heart rate ??? Chest pain ?? When to seek medical advice Call your healthcare provider right away if any of these occur: ??? Fever of 100.4??F (38??C) or higher, or as directed by your healthcare provider ??? Failure to resume normal bowel movements ??? Pain in your abdomen or back gets worse ??? Nausea or vomiting ??? Swelling in your abdomen ??? Small amount of blood in the stool ??? Black, tarry stool ??? Involuntary weight loss ??? Weakness ?? Last Reviewed Date: 2021 ?? [id number] [employer]. All rights reserved. This information is not intended as a substitute for professional medical care. Always follow your healthcare professional's instructions. ?? CT Abdomen and Pelvis W contrast IV * BHSPowerscribe , CIS S: TRANSCRINATA Lou MD, Dae: VERIFY Zurdo MAIN, Theodore Cummings: SIGN Event Display: Result: Authored Date: [id number] CT Abd/Pelvis W/ IV + Oral Contrast HX OF PRESENT ILLNESS: pt has stomach pain and constipation that she has been dealing with for a long time. Her PCP did a x-ray Tuesday and she was told she has a partial bowel obstruction. +Nausea and bloating. Has a hard BM yesterday.; Reason: report of possible obstruction on outside xray; Clinical Question(s): Obstruction; TECHNIQUE: Spiral CT through the abdomen and pelvis with IV contrast formatted in 3 planes. 100 cc of Omnipaque 300 was administered intravenously. This study was performed with oral contrast. Weight-based protocol using automatic tube modulation was used to optimize exposure parameters. CTDIvol Body: 20.25 mGy, DLP Body: 1217 mGy*cm. COMPARISON: CT abdomen and pelvis from 05/01/2016. FINDINGS: Bench Repair Technician View Findings, Lines and Tubes: None. Visualized Chest: Lung bases are clear. No pleural effusion. The heart is normal in size. No pericardial effusion. Diaphragm: Normal. Liver: Normal. Gallbladder: Normal. Bile ducts: No biliary ductal dilation. Spleen: Normal. Pancreas: Normal. Adrenal glands: Normal. Kidneys and ureters: No hydronephrosis, stones, or suspicious masses. Bladder: Normal. Reproductive organs: Normal anteverted uterus with an intrauterine device in appropriate position Stomach, small bowel, and large bowel: Normal caliber stomach and bowel loops. No evidence of acuteobstruction. There is contrast visualized up to the level of the mid to distal ileum. Moderate colonic stool retention. Mild sigmoid diverticulosis without any evidence of acute diverticulitis. Appendix: Normal. Peritoneum and retroperitoneum: No ascites or pneumoperitoneum. No omental or mesenteric lesions. Lymph nodes: No enlarged lymph nodes. Blood vessels: Normal. No aneurysm. No evidence of venous thrombosis. Abdominal and pelvic wall: Unremarkable. Bones: No acute abnormality. IMPRESSION: 1. Moderate colonic stool retention, compatible with constipation in the appropriate setting. No evidence of acute bowel obstruction. 2. Mild sigmoid diverticulosis without any evidence of acute diverticulitis. I have personally reviewed the images and I agree with this report. WSN: [id number] Ordering Physician: Nathaly Wolf Dictated By: Theodore Renner MD Dictated Date/Time: 09/28/22 5:48 pm Reviewed By: Dae Lou MD Signed By: Dae Lou MD Signed Date/Time: 09/28/22 5:53 pm Transcribed By: TUYET Transcribed Date/Time: 09/28/22 5:24 pm Patient Care team information Care Team Personnel Name: Jeremy Sorensen MD Position: Reference Physician Member Role: PCP Address: Address: [address] [place] [address]- [place] Name: Particia Mack RN Position: [facility] ED RN W/OE and Tasks Member Role: Patient Care Provider Name: Brianda Loomis Position: [facility] ED OA Member Role: Process Stripper Name: Nathaly Lawrence Position: [facility] Associate Professional Member Role: Physician Rigger Third Address: Address: [address] [facility] [place] [address]- [place] Name: Chris Bird MD Position: [facility] ED Medicine MD Member Role: Admitting Physician Address: Address: [address] [facility] [address]- [place] Care Team Related Persons Name: MARIEL MURRAY Address: [place] [address] Name: ISSAC MURRAY Address: home [address] [place] [address]
--- OUTSIDE RECORDS SUMMARY | 2023-09-02 07:53 | XMS_ITS | Continuity of Care Document ---
Author Organization [facility] Address [address] [place] [address]- Care Team Providers Care Php Architect Name Role Phone Franchesca MAIN, Jeremy Fong Primary Care Physician Encounter [facility] Date(s): 11/27/20 - 12/27/20 [facility] [address] [address]- Allergies, Adverse Reactions, Alerts Substance Reaction Severity [...]
--- OUTSIDE RECORDS SUMMARY | 2023-09-02 07:53 | XMS_ITS | Continuity of Care Document ---
Author Organization [facility] Address [address] [place] [address]- Care Team Providers Care Power Washer Name Role Phone Franchesca MAIN, Jeremy Fong Primary Care Physician Encounter [facility] Date(s): 03/29/23 - 03/29/[address] [address]- Discharge Disposition: A-D/C Walkout Attending Physician: Not on Staff, Attending MD Admitting Physician: Not on Staff, Admitting MD Referring Physician: Not on Staff, Referring [...] recent to oldest [Reference Range]: 1 Height 183 cm (03/29/23 9:52 AM) Weight 123 kg (03/29/23 9:52 AM) Oxygen Saturation [94-100 %] 97 % (03/29/23 9:52 AM) Pulse Rate [55-90 bpm] 92 bpm *H* (03/29/23 9:52 AM) Blood Pressure [90-138/55-84 mm Hg] 148/ 102mm Hg *H* (03/29/23 9:52 AM) Respiratory Rate [16-30 br/min] 18 br/mi n (03/29/23 9:52 AM) Temperature [96.8-100.4 DegF] 99 DegF (03/29/23 9:52 AM) Mode of Delivery (Oxygen) Room air (03/29/23 9:52 AM) Temperature Route Temporal (03/29/23 9:52 AM) Dry Weight 123 kg (03/29/23 9:52 AM) Social History Social History Type Response Smoking Status Never smoker entered on: 05/11/16 Sex Patient Care team information Care Team Personnel Name: Franchesca MAIN, Jeremy Fong Position: Reference Physician Member Role: PCP Address: Address: [address] [place] [address]- Care Team Related Persons Name: MARIEL MURRAY Address: [place] [address] Name: ISSAC MURRAY Address: [address] [place] [address]
--- OUTSIDE RECORDS SUMMARY | 2023-09-02 07:53 | XMS_ITS | Continuity of Care Document ---
Author Organization [facility] Address [address] [place] [address]- Care Team Providers Care Services Advisor Name Role Phone Franchesca AMIN, Jeremy Fong Primary Care Physician [phone] Encounter [facility] Date(s): 12/29/20 - 01/28/21 [facility] [address] [address]- Allergies, Adverse Reactions, Alerts Substance Reaction Severity [...]
--- OUTSIDE RECORDS SUMMARY | 2023-09-02 07:53 | XMS_ITS | Continuity of Care Document ---
Author Organization [facility] Address [address] [place] [address]- Care Team Providers Care Shale Planer Operator Helper Name Role Phone Franchesca MAIN, Jeremy Fong Primary Care Physician Encounter [facility] Date(s): 04/22/23 - 05/22/23 [facility] [address] [address] Allergies, Adverse Reactions, Alerts No [...] Reference Physician Member Role: PCP Address: Address: [address] [place] [address]- Care Team Related Persons Name: MARIEL MURRAY Address: [place] [address] Name: ISSAC MURRAY Address: [address] [place] [address]
--- NOTE | 2023-09-02 09:19 | MHC.OFFVISWM ---
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: Details: Start time: 9.14am, End time: 9.59am ?I spent 40 minutes speaking with the patient on the phone plus an additional 5 minutes reviewing and updating records for a total of 45 minutes HPI Comments Details: Previous weight loss methods: Ozempic (20lbs , out of pocket and severe constipation), exercise Wakes up: 7am, Sleeps: 10.30pm Breakfast: Herbalife powdered shake Lunch: 12pm (Marianna cheese wraps) Dinner: 7-8pm (Tacos, turkey burgers, salmon, potato salad) Snacks: (10am (granola bars or apple sauce), 4pm (granola bars or apple sauce) Exercise: has a gym membership Fluids: Coffee: none, tea: none, soda: none, juice: 2-3/wk , ETOH: 1/wk (rum, tequila) [facility] Medical History (Updated 09/02/23 @ 09:21 by Chidi Elliott MD) Back pain Anxiety Depression Morbid obesity Surgical History (Updated 07/21/23 @ 11:00 by Makenzie Benavidez CMA) Hx of section Family History (Updated 07/21/23 @ 11:01 by Makenzie Benavidez CMA) Mother Acute Crohn's disease Hypertension Father Diabetes Heart problem Daughter No problems noted. Social History (Updated 07/21/23 @ 10:59 by Makenzie Benavidez CMA) Alcohol intake: current Alcohol intake frequency: holidays/special occasions only Patient Tobacco Use Status: Never used Tobacco Telehealth Telehealth Telehealth Platform: Telephone Location of provider rendering services: practice address Location of patient: address on file Patient Identification confirmed using: Name, : Yes Telehealth method: voice only Patient verbally consented to treatment: Yes Patient verbally consented to billing insurance company: Yes Patient informed of any privacy concerns related to visit: Yes Minutes spent on Phone/Video with Pt.: 45 Assessment & Plan Assessment & Plan (1) Morbid obesity: Code(s): E66.01 - Morbid (severe) obesity due to excess calories Category: Medical Plan: 1.? Plan for lap sleeve gastrectomy. If diaphragmatic or ventral hernias are present at time of surgery, these will be repaired laparoscopically as well. Risks and complications were discussed in detail including possible conversion to an open procedure, anastomotic leak, bleeding requiring transfusion, small bowel obstruction, , DVT and pulmonary embolism, cardiac, or pulmonary complications, as residential complications such as anastomotic ulcer, insufficient weight loss and vitamin deficiencies. I emphasized the importance of close follow-up, adherence to instructions and good communication. 2. You will receive a link of our software yared to generate an individualized nutritional and exercise plan specific for you. Please send me a screenshot of the plans you will generate Meal to include lean meat (beef, fish, pork, turkey, chicken), or uzbek yogurt, or egg whites, or beans with a salad with olive oil and fruits (berries, pears, apples, kiwi). Avoid salt, breads, potatoes, rice, pasta, desserts. 3. If you choose shakes, each shake would be drunk slowly, like coffee in a period of 2 hours. 4. If you choose bars, cut each bar in 4 pieces and eat each piece in 30min ?to make each bar last 2 hours. 5. I emphasized the importance of measuring accurately the food portion and measure it when serving the food in plate 6. The meal portions include a specific number of forks of meat and salad. You always eat the meat portion but you can replace up to half of salad/vegetables portion with rice, potatoes or pasta, or a fruit ?if you like. The less you do it the better weight loss will be. 7. One full-size fork is what it can be scooped on the fork without falling aside and not what can be bit with the fork. Use regular forks like those you find in a typical restaurant. 8.? Please send me weight measurements as soon as possible and then once a week. Always include your diet and exercise plan. 9. The best choice would be to purchase a stationary bike, elliptical or treadmill at home that can track calories. Let me know if you do so I can give you an exercise plan. 10.?It is important of avoiding and for at least 18 months postoperatively and has been discussed at the infosession. 11. Goal is to lose at least 1.5-2lbs per week 12. Goal to lose 10% of your weight before surgery, which is about 28lbs. Ultimate weight goal: 258lbs before surgery 13. Please follow the diet plan exactly without any change. If you don't like something about the plan or you feel hungry you need to communicate with me so I can help you revise the plan. You should not change the plan yourself. Orders: Orders Hemoglobin A1c Today E66.01 - Morbid (severe) obesity due to excess calories Lipid Panel Today E66.01 - Morbid (severe) obesity due to excess calories IRON PROFILE Today E66.01 - Morbid (severe) obesity due to excess calories Comprehensive Met. Panel Today E66.01 - Morbid (severe) obesity due to excess calories Vitamin B12 and Folate Today E66.01 - Morbid (severe) obesity due to excess calories C Reactive Protein Today E66.01 - Morbid (severe) obesity due to excess calories Vitamin B1 Today E66.01 - Morbid (severe) obesity due to excess calories Vitamin A Today E66.01 - Morbid (severe) obesity due to excess calories Ferritin Today E66.01 - Morbid (severe) obesity due to excess calories FL upper GI w air Today E66.01 - Morbid (severe) obesity due to excess calories Insulin Today E66.01 - Morbid (severe) obesity due to excess calories H Pylori Breath Test Today E66.01 - Morbid (severe) obesity due to excess calories Complete Blood Count Auto Diff Today E66.01 - Morbid (severe) obesity due to excess calories Zinc Today E66.01 - Morbid (severe) obesity due to excess calories TSH reflex Free T4 Today E66.01 - Morbid (severe) obesity due to excess calories Vitamin D 25-OH Total Today E66.01 - Morbid (severe) obesity due to excess calories US abdomen comp w elastography Today E66.01 - Morbid (severe) obesity due to excess calories XR chest 2V Today E66.01 - Morbid (severe) obesity due to excess calories ECG 12 lead EKG Today E66.01 - Morbid (severe) obesity due to excess calories Referrals Nutrition/Dietitian Referral E66.01 - Morbid (severe) obesity due to excess calories Behavioral Health Referral E66.01 - Morbid (severe) obesity due to excess calories
[2023-09-02 09:28] VITALS: BMI 40.0
== END 2023-09-02 10:02 | disposition home or self-care (01) ==
LOC: HO.HBS 07:49
PROVIDERS: PCP Internal Medicine; Visit Provider Surgery
DX: E66.01 Morbid (severe) obesity due to excess calories (principal)
CPT/HCPCS: 99204

== ENCOUNTER → 2023-09-02 07:48 | Outpatient (BNVA) | payer OTHER, SELFPAY | PROVIDERS: PCP Internal Medicine; Visit Provider Surgery ==

== ENCOUNTER 2023-12-14 10:08 | Outpatient (AMB) | payer OTHER, SELFPAY ==
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
[2023-12-14 10:17] VITALS: BP 136/72; PULSE 78; TEMP 36; O2SAT 96; BMI 42.4
== END 2023-12-14 10:43 | disposition home or self-care (01) ==
PROVIDERS: PCP Internal Medicine; Visit Provider Physician Assistant Surgical
DX: E66.01 Morbid (severe) obesity due to excess calories (principal); Z68.41 Body mass index [BMI] 40.0-44.9, adult
CPT/HCPCS: 99213

== ENCOUNTER → 2023-12-14 10:08 | Outpatient (BNVA) | payer OTHER, SELFPAY | PROVIDERS: PCP Internal Medicine; Visit Provider Physician Assistant Surgical | DX: E66.01 Morbid (severe) obesity due to excess calories (principal); Z68.41 Body mass index [BMI] 40.0-44.9, adult | CPT/HCPCS: 99212 ==

== ENCOUNTER 2024-01-18 15:25 | Outpatient (AMB) | payer OTHER, SELFPAY ==
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
[2024-01-18 15:32] VITALS: BP 124/69; PULSE 71; TEMP 35.8; O2SAT 96; BMI 42.1
== END 2024-01-18 15:50 | disposition home or self-care (01) ==
PROVIDERS: PCP Internal Medicine; Visit Provider Physician Assistant Surgical
DX: E66.01 Morbid (severe) obesity due to excess calories (principal); Z68.41 Body mass index [BMI] 40.0-44.9, adult
CPT/HCPCS: 99213

== ENCOUNTER → 2024-01-18 15:25 | Outpatient (BNVA) | payer OTHER, SELFPAY | PROVIDERS: PCP Internal Medicine; Visit Provider Physician Assistant Surgical | DX: E66.01 Morbid (severe) obesity due to excess calories (principal); Z68.41 Body mass index [BMI] 40.0-44.9, adult | CPT/HCPCS: 99212 ==

== ENCOUNTER 2024-02-24 12:12 | Outpatient (AMB) | payer OTHER, SELFPAY ==
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
[2024-02-24 12:15] VITALS: BMI 42.0
== END 2024-02-24 12:39 | disposition home or self-care (01) ==
LOC: HO.HBS 12:12
PROVIDERS: PCP Internal Medicine; Visit Provider Physician Assistant Surgical
DX: E66.01 Morbid (severe) obesity due to excess calories (principal)
CPT/HCPCS: 99213

== ENCOUNTER → 2024-02-24 12:12 | Outpatient (BNVA) | payer OTHER, SELFPAY | PROVIDERS: PCP Internal Medicine; Visit Provider Physician Assistant Surgical ==